=== PATIENT | male | born 1990 | race Caucasian/White ===

== ENCOUNTER 2024-03-12 03:57 | Emergency (ER) | payer OTHER ==
[~2024-03-12] VITALS: Ht 180.3 cm; Wt 112.5 kg
[2024-03-12] MEDS ORDERED: IBUPROFEN 400 MG TABLET ONE (04:29)
[2024-03-12] MEDS: IBUPROFEN 400 MG TABLET PO ONE (04:35)
[2024-03-12] MEDS ORDERED: HYDR-3972 PO (04:49)
[2024-03-12] MEDS ORDERED: OXYC-128 PO (05:01)
[2024-03-12 05:14] VITALS: BP 128/81; TEMP 97.7; O2SAT 100
== END 2024-03-12 05:00 | disposition home or self-care (01) ==
LOC: ER 04:02
DX: S62.101A Fracture of unspecified carpal bone, right wrist, initial encounter for closed fracture (principal); E03.9 Hypothyroidism, unspecified; Z79.891 Long term (current) use of opiate analgesic; Z88.1 Allergy status to other antibiotic agents; X58.XXXA Exposure to other specified factors, initial encounter; Y93.89 Activity, other specified; Y92.89 Other specified places as the place of occurrence of the external cause; Y99.8 Other external cause status
CPT/HCPCS: 73110; A4606; A4663